=== PATIENT | male | born 1950 | race Caucasian/White ===

== ENCOUNTER → 2016-05-30 | Outpatient (CLI) | payer OTHER | LOC: BHLMT 09:15 | PROVIDERS: ATTEND Internal Medicine Cardiovascular Disease | DX: I48.91 Unspecified atrial fibrillation (principal) | CPT/HCPCS: 93306-PO ==

== ENCOUNTER 2016-06-14 07:00 | Day surgery (SDC) | payer OTHER ==
[2016-06-14] MEDS ORDERED: PROPOFOL 200 MG/20 ML VIAL IVP ONE (07:06)
[2016-06-14] MEDS ORDERED: fentaNYL 100 MCG/2 ML INJ IVP ONE (07:06)
[2016-06-14] MEDS ORDERED: MIDAZOLAM 2 MG/2 ML VIAL IVP ONE (07:06)
[2016-06-14] MEDS ORDERED: NS 500 ML IV ONE (07:06)
--- NOTE | 2016-06-14 07:40 | CPEKG ---
Heart Rate: 85 RR Interval: 706 QRSD Interval: 100 QT Interval: 380 QTC Interval: 452 QRS [place]: 268 T Wave [place]: 70 EKG Severity - ABNORMAL ECG - EKG Impression: ATRIAL FIBRILLATION, V-RATE 77-100 EKG Impression: LEFT ANTERIOR FASCICULAR BLOCK EKG Impression: ATRIAL FIBRILLATION IS NEW IN COMPARISON TO PRIOR Electronically Signed By: Alex Gates 15-Jun-2016 08:47:12
[2016-06-14 08:04] LABS: INR 1.21 (0.83-1.16); PROTIME(PATIENT) 15.3 SEC (12.0-15.0)
[2016-06-14 08:05] LABS: APTT 26.9 SEC (23.0-38.0)
[2016-06-14 08:14] LABS: ALANINE AMINOTRANSFERASE 33 IU/L (21-72); ALBUMIN 3.9 g/dL (3.5-5.0); ALKALINE PHOSPHATASE 49 IU/L (38-126); ANION GAP 8 mEq/L (8-16); ASPARTATE AMINOTRANSFERASE 26 IU/L (17-59); BILIRUBIN,TOTAL 0.9 mg/dL (0.1-1.4); BILIRUBIN-CONJUGATED 0.3 mg/dL (0.0-0.5); BILIRUBIN-UNCONJUGATED 0.6 mg/dL (0.0-1.1); CALCIUM 9.2 mg/dL (8.5-10.4); CARBON DIOXIDE 29 mEq/l (22-31); CHLORIDE 106 mEq/L (97-110); CREATININE 0.8 mg/dL (0.7-1.3); DIGOXIN 1.2 ng/mL (0.8-2.0); GLOMERULAR FILTRATION RATE > 60; GLUCOSE 104 mg/dL (70-100); MAGNESIUM 2.1 mg/dL (1.6-2.3); POTASSIUM 4.6 mEq/L (3.5-5.2); SODIUM 143 mEq/L (134-144); TOTAL PROTEIN 7.2 g/dL (6.3-8.2)
[2016-06-14] MEDS ORDERED: LIDOCAINE 1% 5 ML SDV ONE (09:26)
[2016-06-14] MEDS ORDERED: PROPOFOL 200 MG/20 ML VIAL ONE (09:26)
--- NOTE | 2016-06-14 09:48 | PDTEE1 ---
MARIAH Cardioversion Procedure Procedure: Electrical Cardioversion, Transesophageal Echo Indications: Atrial Fibrillation Consent: Signed and in Chart Anticoagulation: Eliquis Procedural Details: Pads were placed in anterior-posterior position. MARIAH probe was advanced and standard images obtained. There is no evidence of left atrial or left atrial appendage thrombus. Synchronized cardioversion attempt #1: 200J Results: Normal sinus rhythm Conclusions: Successful Cardioversion
--- NOTE | 2016-06-14 10:27 | CPEKG ---
Heart Rate: 50 RR Interval: 1200 P-R Interval: 224 QRSD Interval: 102 QT Interval: 432 QTC Interval: 394 P [place]: -25 QRS [place]: -87 T Wave [place]: 41 EKG Severity - ABNORMAL ECG - EKG Impression: SINUS RHYTHM EKG Impression: FIRST DEGREE AV BLOCK EKG Impression: LEFT ANTERIOR FASCICULAR BLOCK EKG Impression: SINUS RHYTHM HAS REPLACED PREVIOUS ECG WITH ATRIAL FIBRILLATION EKG Impression: PACs NOTED Electronically Signed By: Alex Gates 15-Jun-2016 08:48:12
== END 2016-06-14 12:00 | disposition home or self-care (01) ==
LOC: FCATH 07:00
PROVIDERS: ATTEND Internal Medicine Cardiovascular Disease
DX: I48.0 Paroxysmal atrial fibrillation (principal); I44.30 Unspecified atrioventricular block; I44.4 Left anterior fascicular block
CPT/HCPCS: J2704

== ENCOUNTER → 2016-06-14 | Outpatient (CLI) | payer OTHER | LOC: FIMAGING 06:54 | PROVIDERS: ATTEND Internal Medicine Cardiovascular Disease | DX: R07.81 Pleurodynia (principal) ==

== ENCOUNTER → 2016-06-27 | Outpatient (CLI) | payer OTHER | LOC: BHLMT 09:30 | PROVIDERS: ATTEND Internal Medicine Cardiovascular Disease | DX: I48.0 Paroxysmal atrial fibrillation (principal); I71.2 Thoracic aortic aneurysm, without rupture; I10 Essential (primary) hypertension | CPT/HCPCS: 93005-PO ==

== ENCOUNTER → 2016-07-07 | Outpatient (CLI) | payer OTHER | LOC: BHFA 09:00 | PROVIDERS: ATTEND Internal Medicine Cardiovascular Disease | DX: I48.0 Paroxysmal atrial fibrillation (principal); I71.2 Thoracic aortic aneurysm, without rupture; I10 Essential (primary) hypertension ==

== ENCOUNTER → 2016-11-07 | Outpatient (CLI) | payer OTHER | LOC: BHLMT 14:00 | PROVIDERS: ATTEND Internal Medicine Cardiovascular Disease | DX: I71.2 Thoracic aortic aneurysm, without rupture (principal); I10 Essential (primary) hypertension; I48.0 Paroxysmal atrial fibrillation | CPT/HCPCS: 93005-PO ==

== ENCOUNTER 2016-11-29 07:26 | Inpatient (IN) | payer OTHER ==
[~2016-11-29 07:26] MED LIST: NS IV ONE; POVIDONE-IODINE 20 ML in SODIUM CL IRRIG SOLUTION 500 ML IRR ONE; ROPIVACAINE 0.2% 80 MG, EPINEPHrine 0.2 MG, KETOROLAC TROMETHAMINE 30 MG in BAG 0 ML IU ONE; TRANEXAMIC ACID IV ONE
[2016-11-29] MEDS ORDERED: ceFAZolin 2 GM/DEXTROSE 100 ML IV ONE (07:44)
[2016-11-29] MEDS ORDERED: ACETAMINOPHEN 325 MG TAB PO ONE (07:44)
[2016-11-29] MEDS ORDERED: FAMOTIDINE 20 MG TAB PO ONE (07:44)
[2016-11-29] MEDS ORDERED: DEXAMETHASONE 4 MG/ML VIAL IVP ONE (07:44)
[2016-11-29] MEDS ORDERED: ceFAZolin 1 GM/5 ML SYR ONE (07:51)
[2016-11-29] MEDS ORDERED: LR 1,000 ML IV ONE (08:08)
[2016-11-29] MEDS ORDERED: LIDOCAINE 1% 2 ML INJ ID PRN (08:08)
--- NOTE | 2016-11-29 08:14 | PDANEPAE ---
ANE History of Present Illness osteoarthritis hip ANE Past Medical History - Cardiovascular History Hx Hypertension: Yes Hx Arrhythmias: Yes Hx Chest Pain: No Hx Coronary Artery / Peripheral Vascular Disease: No Hx CHF / Valvular Disease: No Hx Palpitations: No Cardiovascular History Comment: ASCENDING AORTIC ANEURSYM. A-FIB PREV CARDIOVERSION - Pulmonary History Hx COPD: No Hx Asthma/Reactive Airway Disease: No Hx Recent Upper Respiratory Infection: No Hx Oxygen in Use at Home: No Hx Sleep Apnea: No Sleep Apnea Screening Result - Last Documented: Positive Pulmonary History Comment: PNEUMONIA X2 - Neurologic History Hx Cerebrovascular Accident: No Hx Seizures: No Hx Dementia: No - Endocrine History Hx Diabetes: No - Renal History Hx Renal Disorders: Yes Renal History Comment: BPH - Liver History Hx Hepatic Disorders: No - Neurological & Psychiatric Hx Hx Neurological and Psychiatric Disorders: No - Cancer History Hx Cancer: Yes Cancer History Comment: SKIN - Congenital Disorder History Hx Congenital Disorders: No - GI History Hx Gastrointestinal Disorders: No - Other Health History Other Health History: OSTEOARTHRITIS. BEGINNING CATARACTS - Chronic Pain History Chronic Pain: Yes (RT HIP) - Surgical History Prior Surgeries: CARDIOVERSION 06/14/2016. LT ING HERNIA ANE Review of Systems Review of Systems: positive for A Fib and Hepatitis C and COPD with current smoking. Anti- coagulation management an active issue - Exercise capacity METS (RN): 3 METS ANE Patient History - Allergies Allergies/Adverse Reactions: No Known Allergies Allergy (Unverified 02/21/16 08:03) - Home Medications Home Medications: Albuterol [Proventil Inhaler HFA (*)] 1 - 2 puffs IH DAILY PRN 02/21/16 [Last Taken 02/20/16 08:00] Amiodarone HCl [Pacerone (*)] 200 mg PO DAILY 02/21/16 [Last Taken 02/20/16 18: 00] Apixaban [Eliquis] 5 mg PO BID 02/21/16 [Last Taken 02/21/16 05:00] Benazepril HCl [Lotensin] 40 mg PO DAILY 02/21/16 [Last Taken 02/21/16 06:00] Digoxin [Lanoxin 125 mcg (RX)] 125 mcg PO DAILY 02/21/16 [Last Taken 02/21/16 06 :00] Finasteride [Proscar 5 MG (*)] 5 mg PO DAILY 02/21/16 [Last Taken 02/21/16 06:00 ] Herbals/Supplements -Info Only 1 ea PO DAILY 11/20/16 [Last Taken Unknown] Hydrochlorothiazide [HCTZ (*)] 25 mg PO DAILY 11/20/16 [Last Taken Unknown] Multivitamins [Multivitamin (*)] 1 each PO DAILY 11/20/16 [Last Taken Unknown] - Smoking Hx Smoking Status: Light smoker ANE Labs/Vital Signs - Vital Signs Height: 190.5 cm Weight: 72.575 kg ANE Anesthesia Plan Anesthesia Plan: MAC, spinal Regional Anesthesia: single shot NB (will attend to hx of Afib prior anti- coagulation)
--- NOTE | 2016-11-29 08:47 | PDHPUP ---
History & Physical Update H&P update statement: This history and physical update is based on an assessment of the patient which was completed after admission or registration (within 24 hours), but prior to the surgery/procedure. H&P update: H&P reviewed & patient examined, no change in patient's condition since H&P completed
[2016-11-29 09:05] LABS: APTT 25.8 SEC (23.0-38.0); INR 1.04 (0.83-1.16); PROTIME(PATIENT) 13.5 SEC (12.0-15.0)
[2016-11-29] MEDS ORDERED: MIDAZOLAM 2 MG/2 ML VIAL IVP ONE (09:08)
[2016-11-29] MEDS ORDERED: MIDAZOLAM 2 MG/2 ML VIAL ONE ×2 (09:18→09:19)
[2016-11-29] MEDS ORDERED: ALBUTEROL HFA ANES ONLY 200 PUFFS/8.5 GM MDI IH ONE (09:18)
[2016-11-29] MEDS ORDERED: PROPOFOL/EMULSION 500 MG/50 ML BOTTLE IV ONE (09:18)
[2016-11-29] MEDS ORDERED: NALOXONE HCL 0.4 MG/ML INJ IVP PRN (10:51)
[2016-11-29] MEDS ORDERED: HYDROmorphONE/DILAUDID 1 MG/ML SYR IVP PRN (10:51)
[2016-11-29] MEDS ORDERED: ONDANSETRON 4 MG/2 ML VIAL IVP PRN ×2 (10:51→11:22)
--- NOTE | 2016-11-29 10:57 | POSTANESTH ---
Post Anesthetic Evaluation Cardiovascular Status: Similar to Pre-Op Cond Respiratory Status: Similar to Pre-op Cond. Level of Consciousness/Mental Status: Mildly Sleepy, Arousable Pain Control: Adequate, Prn Tx Ordered Nausea/Vomiting Control: Adequate, Prn Tx Ordered Complications Possibly Related to Anesthesia: None Noted
--- NOTE | 2016-11-29 11:10 | POSTOPPROG ---
Post Op Note Date of Operation: 11/29/16 Surgeon: Nino Marquez Button Pusher: Ha Otoole/Letty Smith Anesthesiologist: Dr. Elbert Mars Anesthesia: IV Sedation, Spinal Post-op Diagnosis: Right hip severe degenerative arthritis. Procedure: Right total hip arthroplasty. Inf/Abcess present in the surg proc area at time of surgery?: No EBL: 100-500
[2016-11-29] MEDS ORDERED: PROMETHAZINE HCL 25 MG/ML INJ IVP PRN (11:22)
[2016-11-29] MEDS ORDERED: MAGNESIUM HYDROXIDE 30 ML UDCUP PO PRN (11:22)
[2016-11-29] MEDS ORDERED: CYCLOBENZAPRINE 10 MG TAB PO PRN (11:22)
[2016-11-29] MEDS ORDERED: POLYETHYLENE GLYCOL 3350 17 GM PKT PO PRN (11:22)
[2016-11-29] MEDS ORDERED: diphenhydrAMINE 25 MG CAP PO PRN (11:22)
[2016-11-29] MEDS ORDERED: traMADol 50 MG TAB PO PRN (11:22)
[2016-11-29] MEDS ORDERED: TEMAZEPAM 15 MG CAP PO PRN (11:22)
[2016-11-29] MEDS ORDERED: LACTULOSE 20 GM/30 ML UDCUP PO PRN (11:22)
[2016-11-29] MEDS ORDERED: DIPHENOXYLATE/ATROPINE LOMOTIL 1 TAB PO PRN (11:22)
[2016-11-29] MEDS ORDERED: METOCLOPRAMIDE 10 MG/2 ML VIAL IVP PRN (11:22)
[2016-11-29] MEDS ORDERED: PROMETHAZINE HCL 25 MG SUPPR PR PRN (11:22)
[2016-11-29] MEDS ORDERED: KETOROLAC 30 MG/1 ML SDV IVP PRN (11:22)
[2016-11-29] MEDS ORDERED: BISACODYL 10 MG SUPP PR PRN (11:22)
[2016-11-29] MEDS ORDERED: ALBUTEROL 60 PUFFS/8 GM MDI IH PRN (11:25)
[2016-11-29] MEDS ORDERED: LR 1,000 ML IV SCH (11:30)
[2016-11-29] MEDS ORDERED: ALBUTEROL 200 PUFFS/18 GM MDI IH PRN (11:41)
[2016-11-29] MEDS: ACETAMINOPHEN 325 MG TAB PO SCH ×2 (13:16→18:40)
[2016-11-29] MEDS: TRANEXAMIC ACID 650 MG TAB PO SCH ×2 (13:16→21:36)
--- NOTE | 2016-11-29 13:21 | GOP ---
[f rep st] OPERATIVE REPORT DATE OF OPERATION: 11/29/2016 SURGEON: Nino Marquez MD LAST DIPPER: Ha Otoole CFA, and Letty Smith RN. ANESTHESIA: A combination of Marcaine, spinal, and IV sedation. ANESTHESIOLOGIST: Elbert Mars MD. PREOPERATIVE DIAGNOSIS: Right hip severe degenerative arthritis. POSTOPERATIVE DIAGNOSIS: Right hip severe degenerative arthritis. PROCEDURE PERFORMED: Right total hip arthroplasty, Oxinium femoral head on highly cross-linked poly ethylene cup liner. FINDINGS: ESTIMATED BLOOD LOSS: About 400 mL. I used a Cervantes and [employer]hew R3 hemispherical solid-backed acetabular shell with an outside diameter of 62 mm. The liner was a Cervantes and Nephew R3 flush highly cross-linked liner with an inside diameter of 36 mm. The femoral component was a press-fit Cervantes and Nephew standard offset Synergy stem in a size 15. The femoral head was a Cervantes Nephew Oxinium head with a +4 mm neck length and a 36 mm out side diameter. Ha Otoole and Letty Smith acted as surgical assistants. Their assistance was a medical necess ity for safe completion of the procedure. DESCRIPTION OF PROCEDURE: The patient was given 2 g of IV Ancef preoperatively within 60 minutes of surgery. He also received IV tranexamic acid at a dose of 20 mg/kg. He was placed on the [facility] g room table and given spinal anesthesia with Marcaine by Dr. Mars. He was then placed supine and given IV sedation. A catheter was not used. He wore a DEYSI stocking and SCD on the nonoperat stewart leg. He was rolled to the left lateral decubitus position. The position was secured with the p egboard table attachment. An axillary roll was used, and all pressure points were carefully padded. I was careful to lock his pelvis in a rigid vertical position. His perineum was isolated with lourdes stic adhesive drapes. The right hip and right lower extremity were prepped with ChloraPrep. They w ere draped free using sterile sheets, stockinette, and Ioban plastic drape. The World [employer] Organization time-out was performed to verify the correct surgical side and site, a nd the correct patient identity. The [place] time-out was also performed. I made a 5-inch straight oblique posterolateral hip skin incision. He was very thin and had a thin layer of subcutaneous fat. Subcutaneous tissues were sharply divided, and hemostasis was obtained u sing electrocautery. His fascia luana was identified and split along the axis of its fibers. I then curved posteriorly and proximally split the fascia of gluteus jj and bluntly split the muscle fibers in line with their orientation. The Charnley self-retaining retractor was inserted. His sci atic nerve was located, partially exposed, and protected throughout the procedure. The external rot ators and the posterior hip capsule were divided as separate layers at the base of the femoral neck, tagged, and reflected posteriorly. His posterior capsule was very attenuated. A smooth 8-inch Quang inmann pin was inserted vertically into the ilium, superior to the acetabulum. An 8-inch drill bit was inserted vertically into the greater trochanter and parallel to the first pin. The distance bet ween the 2 was measured for leg length reference. His femoral head was dislocated posteriorly. He had very severe degenerative changes. His femoral head was markedly enlarged, and he had very large peripheral head osteophytes. The femoral neck was osteotomized at the appropriate level and inclin ation. He had multiple small loose bodies in the joint. These were removed. The remnant of his labrum was excised. I prepared the femur first. This allowed me to paper machine tender the am ount of natural femoral neck anteversion. He had about 10 degrees of natural anteversion. The brenton l was opened laterally with a box chisel. I then reamed and broached sequentially up to size 15. I used a size 15 broach as a trial stem. I was careful to lateralize adequately. Appropriate retractors were inserted to expose the acetabulum. In conjunction with the large femora l head, he had a very large acetabulum. The acetabulum was reamed sequentially up to 61 mm. I raj cted a 62 mm Cervantes and Nephew R3 solid-backed hemispherical shell. This was tapped securely into pl juice in the proper degree of inclination and anteversion. I used the remnant of the transverse aceta bular ligament and other acetabular bony landmarks to help me properly orient the cup. Fixation was very tight, and supplemental screw fixation was not necessary. I inserted a screw-in metal dome ho le plug. He had very large posterior-inferior osteophytes, which I removed with an osteotome and ro ngeur. I performed a series of trial reductions to determine length and stability. I concluded that the si ze 15 stem with a +4 mm neck length, a 36 mm head, and a flush liner gave me the proper combination of appropriate length and good anterior and posterior stability. I recognized that I was lengthenin g him by 7 or 8 mm. This gave me better stability. I advised him that when I lengthen him on this side, I will lengthen him a similar amount when I do his opposite hip. His left hip is also very ar thritic. The flush Cervantes and Nephew R3 highly cross-linked polyethylene liner was inserted and tapped securel y into place. The Cervantes and Nephew Synergy stem in a size 15 with standard offset was inserted pres s-fit and was very tight. I did one final trial reduction, and confirmed that the +4 mm neck length with a 36 mm head was the proper combination. The Cervantes and Nephew Oxinium head with a 36 mm outsi de diameter and a +4 mm neck length was tapped securely onto the clean trunnion. The acetabulum was irrigated and cleaned, and the hip was reduced one final time. 40 mL of the joint anesthetic cocktail was injected into the capsule, the deep musculature, and subc utaneous tissues along the skin edges. The joint was thoroughly irrigated one final time with a dil [place] Betadine solution. His sciatic nerve was reinspected and looked unharmed. The external rotator s and the flimsy posterior capsule were closed as a single layer with #2 FiberWire sutures through d rill holes in the greater trochanter. The fascia luana was closed first with a couple of interrupted [id number]-ohaqm #2 FiberWire sutures, followed by a running #2 barbed Ethicon Stratafix PDO suture. Subcutaneous tissues were closed with a running 0 barbed Ethicon Stratafix Monoderm suture. The s kin was closed with a running 3-0 barbed Ethicon Stratafix Monoderm subcuticular suture. The skin e dges were reapproximated and sealed with Dermabond glue. The wound was covered with a strip of Telf a, and everything was held in place with a piece of clear plastic Tegaderm. A long-leg DEYSI stocking and SCD were applied to his right lower extremity. He wore a stockemma and S CD on the opposite leg during the procedure. An abduction pillow was placed between his knees. He was awakened from anesthesia and rolled to the supine position on his [facility]. He was taken to PACU in satisfactory condition. There were no recognized intraoperative complications. /[id number]/MODL
[2016-11-29] MEDS: ceFAZolin 2 GM/DEXTROSE 100 ML IV SCH ×2 (14:26→21:35)
[2016-11-29] MEDS: oxyCODONE IR 5 MG TAB PO PRN ×2 (16:59→21:44)
[2016-11-29] MEDS: SENNOSIDES/DOCUSATE SODIUM TAB PO SCH (21:35)
[2016-11-29] MEDS: FAMOTIDINE 20 MG TAB PO SCH (21:36)
[2016-11-30] MEDS: ACETAMINOPHEN 325 MG TAB PO SCH ×3 (00:52→10:57)
[2016-11-30] MEDS: TRANEXAMIC ACID 650 MG TAB PO SCH (04:27)
[2016-11-30] MEDS: oxyCODONE IR 5 MG TAB PO PRN ×3 (04:27→10:58)
[2016-11-30 05:27] LABS: HEMATOCRIT 35.7 % (40.0-51.0); HEMOGLOBIN 12.2 g/dL (13.7-17.5)
--- NOTE | 2016-11-30 07:15 | SOAPPROG ---
SOAP Progress Note Assessment/Plan: Assessment: Afebrile. Awake and alert. Moderate pain. Needed urinary catheterization 1 time yesterday, but has been voiding spontaneously since then. His dressing is dry. Sciatic nerve intact. Postop films look excellent. H&H were good. Plan: Up with physical therapy today. Discharged later today. 11/30/16 07:15 Objective: Vital Signs Temp Pulse Resp BP Pulse Ox 36.6 C 53 L 16 127/71 H 98 11/30/16 04:23 11/30/16 04:23 11/30/16 04:23 11/30/16 04:23 11/30/16 04:23 Laboratory Results 11/30/16 05:12 11/29/16 11/30/16 12/01/16 05:59 05:59 05:59 Intake Total 3255 Output Total 1200 Balance 2055 PT 13.5 SEC (12.0-15.0) 11/29/16 08:40 INR 1.04 (0.83-1.16) 11/29/16 08:40 ICD10 Worksheet Patient Problems: Problems Problem Status Onset Osteoarthritis of right hip Acute
[2016-11-30] MEDS: SENNOSIDES/DOCUSATE SODIUM TAB PO SCH (07:50)
[2016-11-30] MEDS: FAMOTIDINE 20 MG TAB PO SCH (07:51)
[2016-11-30] MEDS: DIGOXIN 125 MCG TAB PO SCH ×2 (07:51→07:52)
[2016-11-30 08:18] VITALS: BP 103/64; PULSE 66; RESP 12; TEMP 96.1; O2SAT 95
[2016-11-30] MEDS ORDERED: HYDROCHLOROTHIAZIDE 25 MG TAB PO SCH (09:00)
[2016-11-30] MEDS ORDERED: FINASTERIDE 5 MG TAB PO SCH (09:00)
[2016-11-30] MEDS ORDERED: BENAZEPRIL HCL 20 MG TAB PO SCH (09:00)
[2016-11-30] MEDS ORDERED: FERROUS SULFATE 140 MG TAB.ER PO SCH (09:00)
[2016-11-30] MEDS ORDERED: APIXABAN 5 MG TAB PO SCH (09:00)
[2016-11-30] MEDS ORDERED: BENAZEPRIL HCL 40 MG PO SCH (09:00)
[2016-11-30] MEDS ORDERED: AMIODARONE HCL 200 MG TAB PO SCH (09:00)
[2016-11-30] MEDS ORDERED: MULTIVITAMINS 1 EACH TAB PO SCH (09:00)
[2016-11-30] MEDS ORDERED: ASPIRIN 325 MG TAB PO SCH (09:00)
--- NOTE | 2016-11-30 13:51 | CPEKG ---
Heart Rate: 59 RR Interval: 1017 QRSD Interval: 98 QT Interval: 408 QTC Interval: 405 QRS [place]: -89 T Wave [place]: 43 EKG Severity - ABNORMAL ECG - EKG Impression: NSR EKG Impression: LAD, CONSIDER LAFB OR INFERIOR INFARCT Electronically Signed By: Dion Acuña 30-Nov-2016 14:16:42
--- NOTE | 2016-11-30 14:03 | GDS ---
[f rep st] DISCHARGE SUMMARY ADMISSION DIAGNOSIS: Right hip severe degenerative arthritis. DISCHARGE DIAGNOSES: Right hip severe degenerative arthritis. OPERATIONS PERFORMED: 11/29/2016, a right total hip arthroplasty. POSTOPERATIVE COMPLICATIONS: None. CONDITION ON DISCHARGE: Improved. DESCRIPTION OF HOSPITAL COURSE: The patient was admitted to the hospital the morning of surgery. His admission CBC was normal except for a platelet count of 135,000. Electrolytes, BUN and creatinine were normal. The same day, under a combination of Marcaine, spinal anesthesia and IV sedation, he underwent a right total hip arthroplasty. Postoperatively, he was treated with multimodal DVT prophylaxis, including aspirin and early mobilization. He was also restarted on his Eliquis for atrial fib. He was seen by Physical Therapy and made good progress with ambulation. He required straight urinary catheterization 1 time, but was able to void spontaneously after that. By the time of discharge, he was afebrile, was independent walking, and his dressing was clean and dry. DISPOSITION: The patient is discharged to his home. He will go to outpatient physical therapy in [place]. Continue aspirin 325 mg p.o. daily for 21 days. He may progress to full weightbearing on the right as tolerated. Use an abduction pillow in bed for 3 weeks. Use DEYSI stockings for 1 week. I will see him back in the office on December 21, 2016. Continue his normal pre op dose of Eliquis. If any problems, he is to call me at the office. /[id number]/MODL MTDD
== END 2016-11-30 11:25 | disposition home or self-care (01) | DRG 470 ==
LOC: F3N 07:26
PROVIDERS: ADMIT Orthopaedic Surgery; ATTEND Orthopaedic Surgery
PROC: 0SR904Z Replacement of Right Hip Joint with Ceramic on Polyethylene Synthetic Substitute, Open Approach (ICD-10-PCS; principal; 2016-11-29 09:30)
DX: M16.11 Unilateral primary osteoarthritis, right hip (principal); I48.91 Unspecified atrial fibrillation; I10 Essential (primary) hypertension; N40.0 Benign prostatic hyperplasia without lower urinary tract symptoms; Z79.01 Long term (current) use of anticoagulants
CPT/HCPCS: 97116-GP; 97161-GP; 97165-GO; 97530-GP; G8978-GP-CJ; G8979-GP-CI; G8980-GP-CI; G8987-GO-CI; G8988-GO-CI; G8989-GO-CI; J0171; J0690; J1100; J1885; J2250; J2704; J2795

== ENCOUNTER → 2016-12-14 | Outpatient (CLI) | payer OTHER | LOC: BHFA 09:30 | PROVIDERS: ATTEND Internal Medicine Cardiovascular Disease | DX: Z79.899 Other long term (current) drug therapy (principal) ==

== ENCOUNTER 2017-02-21 05:49 | Inpatient (IN) | payer OTHER ==
--- NOTE | 2017-02-08 09:31 | GHP ---
[f rep st] PREOP HISTORY AND PHYSICAL DATE OF ADMISSION: He will be an a.m. admission for surgery on 02/21/2017. PROBLEM: Left hip arthritis. HISTORY OF PRESENT ILLNESS: The patient is a 66-year-old man admitted for a left total hip arthroplasty. He has a long history of severe bilateral hip pain. He is having daily pain and night pain in his left hip. His activities are very limited because of the pain. I did his right total hip arthroplasty on November 29, 2016, and he has had a very good result. He is admitted now for the same procedure on the left hip. PAST MEDICAL HISTORY: He has a history of hepatitis C and has had Harvoni treatment. He also has atrial fibrillation; this is controlled with medication. He is also treated for hypertension. No history of DVT, sleep apnea, or bleeding problems. CURRENT MEDICATIONS: Amiodarone 200 mg per day, benazepril 20 mg per day, digoxin 0.125 mg per day, Eliquis 5 mg per day, finasteride 5 mg per day, hydrochlorothiazide 25 mg per day. He occasionally uses an inhaler for shortness of breath. ALLERGIES: Drugs: None. Metal: None. Latex: None. SOCIAL HISTORY: The patient lives with a female partner. He smokes 3 or 4 cigarettes per day. He does not drink alcohol. FAMILY HISTORY: Negative. PHYSICAL EXAMINATION: VITAL SIGNS: Height 6 feet 2 inches, weight 160 pounds, BMI 20.5. EYES: The conjunctivae and sclerae are clear. Pupils are round and reactive. MOUTH: Fair oral hygiene. CHEST: Clear. HEART: Regular rhythm, no murmurs. EXTREMITIES: Pertinent findings limited to his left hip. He has full hip extension and 80 degrees of flexion, internal rotation 0 degrees, external rotation 0 degrees, and abduction 20 degrees. IMAGING: His films show very severe degenerative arthritis of the left hip. He is bone on bone. Extensive osteophyte formation is present. He has excellent position of the components of his right total hip arthroplasty. He is approximately 10 mm long on the right. IMPRESSION ON ADMISSION: 1. Left hip advanced degenerative arthritis; he is prepared for a left total hip arthroplasty. 2. Two months status post successful right total hip arthroplasty. 3. History of hepatitis C; he has been treated with Harvoni. 4. Atrial fibrillation. 5. Hypertension. PLAN: He will undergo a left total hip arthroplasty. The surgery has been described to him, including the risks, complications, expectations, and recovery time. I have discussed with him the risk of dislocation, leg length inequality, infection, and sciatic nerve injury. I intend to lengthen him on the left side to equalize his leg lengths. I have advised him that with bilateral procedures, there can be mild tlgu-ps-lysd differences during the recovery and even in the final result. All his questions have been answered, and he consents to surgery. I will stop his Eliquis 3 days prior to surgery and then restart it postoperatively. That is what I did with his 1st total hip replacement. /[id number]/MODL MTDD
[2017-02-21] MEDS ORDERED: POVIDONE-IODINE 20 ML in SODIUM CL IRRIG SOLUTION 500 ML IRR ONE (06:00)
[2017-02-21] MEDS ORDERED: ROPIVACAINE 0.2% 80 MG, EPINEPHrine 0.2 MG, KETOROLAC TROMETHAMINE 30 MG in BAG 0 ML IU ONE (06:00)
[2017-02-21] MEDS ORDERED: TRANEXAMIC ACID IV ONE (06:00)
[2017-02-21] MEDS ORDERED: NS IV ONE (06:00)
[2017-02-21] MEDS ORDERED: FAMOTIDINE 20 MG TAB PO ONE (06:04)
[2017-02-21] MEDS ORDERED: DEXAMETHASONE 4 MG/ML VIAL IVP ONE (06:04)
[2017-02-21] MEDS ORDERED: ceFAZolin 2 GM/SWFI 2 GM/20 ML SYR IVP ONE ×2 (06:04→06:15)
[2017-02-21] MEDS ORDERED: ACETAMINOPHEN 325 MG TAB PO ONE (06:04)
[2017-02-21] MEDS ORDERED: ceFAZolin 1 GM/5 ML SYR ONE (06:16)
[2017-02-21] MEDS ORDERED: LR 1,000 ML IV ONE (06:19)
[2017-02-21] MEDS ORDERED: LIDOCAINE 1% 2 ML INJ ID PRN (06:19)
[2017-02-21] MEDS ORDERED: MIDAZOLAM 2 MG/2 ML VIAL IVP ONE (07:05)
--- NOTE | 2017-02-21 07:07 | PDANEPAE ---
ANE Past Medical History - Cardiovascular History Hx Hypertension: Yes Hx Arrhythmias: Yes Hx Chest Pain: No Hx Coronary Artery / Peripheral Vascular Disease: No Hx CHF / Valvular Disease: No Hx Palpitations: No Cardiovascular History Comment: ASCENDING AORTIC ANEURSYM. A-FIB PREV CARDIOVERSION - Pulmonary History Hx COPD: No Hx Asthma/Reactive Airway Disease: No Hx Recent Upper Respiratory Infection: No Hx Oxygen in Use at Home: No Hx Sleep Apnea: No Sleep Apnea Screening Result - Last Documented: Positive Pulmonary History Comment: PNEUMONIA X2 - Neurologic History Hx Cerebrovascular Accident: No Hx Seizures: No Hx Dementia: No - Endocrine History Hx Diabetes: No - Renal History Hx Renal Disorders: Yes Renal History Comment: BPH - Liver History Hx Hepatic Disorders: No - Neurological & Psychiatric Hx Hx Neurological and Psychiatric Disorders: No - Cancer History Hx Cancer: Yes Cancer History Comment: SKIN - Congenital Disorder History Hx Congenital Disorders: No - GI History Hx Gastrointestinal Disorders: No - Other Health History Other Health History: OSTEOARTHRITIS. BEGINNING CATARACTS - Chronic Pain History Chronic Pain: Yes (LT HIP) - Surgical History Prior Surgeries: RT TOTAL HIP 11/29/16. CARDIOVERSION 06/14/2016. LT ING HERNIA ANE Review of Systems Review of systems is: negative (hepatitis treated) Review of Systems: - Exercise capacity METS (RN): 3 METS ANE Patient History - Allergies Allergies/Adverse Reactions: No Known Allergies Allergy (Unverified 02/21/16 08:03) - Home Medications Home Medications: Albuterol [Proventil Inhaler HFA (*)] 2 puffs IH DAILY PRN 02/21/16 [Last Taken 02/18/17] Amiodarone HCl [Pacerone (*)] 200 mg PO DAILY18 02/21/16 [Last Taken 02/21/17 05 :00] Apixaban [Eliquis] 5 mg PO BID 02/21/16 [Last Taken 02/18/17] Benazepril HCl [Lotensin] 40 mg PO DAILY 02/21/16 [Last Taken 02/20/17 18:00] Digoxin [Lanoxin 125 mcg (RX)] 125 mcg PO DAILY 02/21/16 [Last Taken 02/20/17 18 :00] Finasteride [Proscar 5 MG (*)] 5 mg PO DAILY 02/21/16 [Last Taken 02/20/17 18:00 ] Herbals/Supplements -Info Only 1 ea PO DAILY 11/20/16 [Last Taken 02/14/17] Hydrochlorothiazide [HCTZ (*)] 25 mg PO DAILY 11/20/16 [Last Taken 02/20/17 18: 00] Multivitamins [Multivitamin (*)] 1 each PO DAILY 11/20/16 [Last Taken 02/20/17] - NPO status NPO Since - Liquids (Date): 02/20/17 NPO Since - Liquids (Time): 22:00 NPO Since - Solids (Date): 02/20/17 NPO Since - Solids (Time): 19:00 - Smoking Hx Smoking Status: Light smoker ANE Labs/Vital Signs - Vital Signs Blood Pressure: 127/88 Heart Rate: 64 Respiratory Rate: 16 O2 Sat (%): 97 Height: 190.5 cm Weight: 72.121 kg ANE Physical Exam - Airway Mallampati Score: Class 3 Mouth exam: normal dental/mouth exam - Pulmonary Pulmonary: no respiratory distress, expiratory wheeze - Cardiovascular Cardiovascular: regular rate and rhythym - ASA Status ASA Status: III (hx a fib)
[2017-02-21] MEDS ORDERED: fentaNYL 100 MCG/2 ML INJ ONE (07:14)
[2017-02-21] MEDS ORDERED: MIDAZOLAM 2 MG/2 ML VIAL ONE (07:15)
[2017-02-21] MEDS ORDERED: PROPOFOL/EMULSION 500 MG/50 ML BOTTLE IV ONE (07:15)
[2017-02-21] MEDS ORDERED: DIGOXIN 500 MCG/2 ML AMP ONE (08:01)
[2017-02-21] MEDS ORDERED: ONDANSETRON 4 MG/2 ML VIAL IVP PRN ×2 (08:40→09:19)
[2017-02-21] MEDS ORDERED: ALBUTEROL 3 ML DEYVIAL IH PRN (08:40)
[2017-02-21] MEDS ORDERED: NALOXONE HCL 0.4 MG/ML INJ IVP PRN (08:40)
[2017-02-21] MEDS ORDERED: PROPOFOL 200 MG/20 ML VIAL ONE (09:03)
[2017-02-21] MEDS ORDERED: RANITIDINE 50 MG/2 ML VIAL ONE (09:08)
[2017-02-21] MEDS ORDERED: DEXAMETHASONE 4 MG/ML VIAL ONE (09:08)
[2017-02-21] MEDS ORDERED: ONDANSETRON 4 MG/2 ML VIAL ONE (09:08)
--- NOTE | 2017-02-21 09:14 | POSTOPPROG ---
Post Op Note Date of Operation: 02/21/17 Surgeon: Nino Marquez Aquatics Assistant Department Head: Fidencio Rodríguez/Ha Otoole Anesthesiologist: Elbert Mars Anesthesia: IV Sedation, Spinal Post-op Diagnosis: Left hip severe degenerative arthritis. Procedure: Left total hip arthroplasty. Inf/Abcess present in the surg proc area at time of surgery?: No EBL: 100-500
[2017-02-21] MEDS ORDERED: ALBUTEROL 60 PUFFS/8 GM MDI IH PRN (09:18)
--- NOTE | 2017-02-21 09:18 | POSTANESTH ---
Post Anesthetic Evaluation Cardiovascular Status: Normal, Stable Respiratory Status: Normal, Stable Level of Consciousness/Mental Status: Can Participate in Eval Pain Control: Adequate, Prn Tx Ordered Nausea/Vomiting Control: Adequate, Prn Tx Ordered Complications Possibly Related to Anesthesia: None Noted
[2017-02-21] MEDS ORDERED: traMADol 50 MG TAB PO PRN (09:19)
[2017-02-21] MEDS ORDERED: NS 500 ML IV PRN (09:19)
[2017-02-21] MEDS ORDERED: KETOROLAC 30 MG/1 ML SDV IVP PRN (09:19)
[2017-02-21] MEDS ORDERED: ONDANSETRON DISINTEGRATING 4 MG TAB PO PRN (09:19)
[2017-02-21] MEDS ORDERED: diphenhydrAMINE 25 MG CAP PO PRN (09:19)
[2017-02-21] MEDS ORDERED: PROMETHAZINE HCL 25 MG/ML INJ IVP PRN (09:19)
[2017-02-21] MEDS ORDERED: POLYETHYLENE GLYCOL 3350 17 GM PKT PO PRN (09:19)
[2017-02-21] MEDS ORDERED: TEMAZEPAM 15 MG CAP PO PRN (09:19)
[2017-02-21] MEDS ORDERED: DIPHENOXYLATE/ATROPINE LOMOTIL 1 TAB PO PRN (09:19)
[2017-02-21] MEDS ORDERED: LACTULOSE 20 GM/30 ML UDCUP PO PRN (09:19)
[2017-02-21] MEDS ORDERED: PROMETHAZINE HCL 25 MG SUPPR PR PRN (09:19)
[2017-02-21] MEDS ORDERED: BISACODYL 10 MG SUPP PR PRN (09:19)
[2017-02-21] MEDS ORDERED: CYCLOBENZAPRINE 10 MG TAB PO PRN (09:19)
[2017-02-21] MEDS ORDERED: METOCLOPRAMIDE 10 MG/2 ML VIAL IVP PRN (09:19)
[2017-02-21] MEDS ORDERED: MAGNESIUM HYDROXIDE 30 ML UDCUP PO PRN (09:19)
[2017-02-21] MEDS ORDERED: LR 1,000 ML IV SCH (09:30)
--- NOTE | 2017-02-21 09:53 | GOP ---
[f rep st] OPERATIVE REPORT DATE OF OPERATION: 02/21/2017 SURGEON: Nino Marquez MD DURALUMIN METALWORKER: Fidencio Rodríguez and Ha Otoole. ANESTHESIA: A combination of Marcaine, spinal, and IV sedation, and adductor canal block. ANESTHESIOLOGIST: Elbert Mars MD. PREOPERATIVE DIAGNOSIS: Left hip severe degenerative arthritis. POSTOPERATIVE DIAGNOSIS: Left hip severe degenerative arthritis. PROCEDURE PERFORMED: Left total hip arthroplasty, Oxinium femoral head on highly cross-linked polyet hylene cup liner. FINDINGS: ESTIMATED BLOOD LOSS: About 400 mL. DESCRIPTION OF PROCEDURE: The patient was given 2 g of IV Ancef preoperatively within 60 minutes of surgery. He also received IV tranexamic acid at a dose of 20 mg/kg. He was placed on the operating room table and given spinal anesthesia with Marcaine by Dr. Mars. He was then placed supine and gi demetrio IV sedation. A catheter was not used. He wore a DEYSI stocking and SCD on the nonoperative leg. He was rolled to the right lateral decubitus position. The position was secured with the [employer] emily table attachment. An axillary roll was used, and all pressure points were carefully padded. I w as careful to lock his pelvis in a rigid vertical position. His perineum was isolated with plastic a dhesive drapes. The left hip and left lower extremity were prepped with ChloraPrep. They were drape d free using sterile sheets, stockinette, and Ioban plastic drapes. The [employer] time-out was performed to verify the correct surgical side and site and the correct patient identity. The [facility] time-out was also performed. I made a 5-inch straight oblique posterolateral hip skin incision. Subcutaneous tissues were sharply divided, and hemostasis was obtained using electrocautery. He was thin and had a very thin layer of subcutaneous fat. The fascia luana was identified and split along the axis of its fibers. I then cu rved posteriorly and proximally, and split the fascia of gluteus jj and bluntly split the muscle fibers in line with their orientation. The Charnley self-retaining retractor was inserted. His sci atic nerve was located, partially exposed, and protected throughout the procedure. The external rota tors and the posterior hip capsule were divided as separate layers at the base of the femoral neck, t agged, and reflected posteriorly. A smooth 8-inch Steinmann pin was inserted vertically into the narinder um, superior to the acetabulum. An 8-inch drill bit was inserted vertically into the greater trochan ter and parallel to the first pin. The distance between the 2 was measured for leg length reference. His femoral head was dislocated posteriorly. He had very severe degenerative changes on the femora l head. It was greatly enlarged and flattened. His femoral neck was osteotomized at the appropriate level and inclination. I was careful to preserve all the posterior capsule and most of the anterior capsule. The remnant of his badly damaged labrum was excised. I prepared the femur first. This allowed me to municipal court judge the christine unt of natural femoral neck anteversion. This, in turn, allowed me to later determine the correct am ount of cup of anteversion. He had approximately 10 degrees of femoral neck anteversion. The canal was opened laterally with a box chisel. I reamed and broached sequentially up to size 15. I used a size 15 broach as a trial stem. I was careful to lateralize adequately. Appropriate retractors were inserted to expose the acetabulum. The acetabulum was reamed sequentiall y up to a size 55. His acetabulum had been significantly enlarged by the large arthritic femoral hea d. I selected a 64 mm [employer]antes [employer] R3 solid-backed hemispherical shell. This was tapped securel y into place in the proper degree of inclination and anteversion. I used the transverse acetabular l igament remnant and other acetabular bony landmarks to help me properly orient the cup. A screw-in m etal dome hole plug was used. The fixation was very tight and supplemental screws were not necessary . I performed a series of trial reductions to determine length and stability. I concluded that the siz e 15 stem with standard offset and a +4 mm neck with a 36 mm head and a flush or 0-degree trial liner gave me the proper combination of appropriate lengthening and good anterior and posterior stability. He was short preoperatively, and I was intentionally lengthening hip. He had some large posterior and posterior inferior osteophytes which I removed with an osteotome and rongeur. The 0 degree C[employer] R3 highly cross-linked polyethylene liner was inserted and tapped secur pasquale into place. I selected a C[employer] Synergy stem in a size 15 with standard offset. This was inserted to press-fit and was very tight. I did 1 final trial reduction and confirmed that the + 4 mm neck length with a 36 mm head was the proper combination. The C[employer]hew Oxinium head wit h an outside diameter of 36 mm and a neck length of +4 mm was tapped securely onto the clean trunnion . The acetabulum was irrigated and cleaned, and the hip was reduced 1 final time. He had excellent anterior and posterior stability and appropriate length. 40 mL of the joint anesthetic cocktail were injected into the capsule, the deep musculature, and the subcutaneous tissues around the skin edges. The joint was thoroughly irrigated 1 final time with a d ilute Betadine solution. His sciatic nerve was reinspected and looked unharmed. The external rotators and the posterior hip capsule were repaired in separate layers with #2 FiberWir e sutures through drill holes in the greater trochanter. This provided a strong posterior capsular a nd external rotator repair. The fascia luana was closed first with several interrupted [id number] t #2 FiberWire sutures followed by a running #2 barbed Ethicon Stratafix PDO suture. The subcutaneou s tissues were closed with a running 0 barbed Ethicon Stratafix Monoderm suture. The skin was closed with a running 3-0 barbed Ethicon Stratafix Monoderm subcuticular suture. The skin edges were reapp roximated and sealed with Dermabond glue. The wound was covered with a large piece of sterile Mepile x surgical dressing. A long-leg DEYSI stocking and SCD were applied to his left lower extremity. An abduction pillow was pl aced at his knees. He was awakened from anesthesia and rolled to the supine position on his [facility] He was taken to PACU in satisfactory condition. There were no recognized intraoperative co mplications. COUNTS: The sponge and needle count were correct on 2 occasions. IMPLANTS: I used a [employer] R3 hemispherical solid-backed acetabular shell with an outside d iameter of 64 mm. The liner was a [employer] R3 flush highly cross-linked liner with an inside diameter of 36 mm. The femoral component was a standard offset C[employer]antes [employer]hew Synergy stem in siz e 15 and press-fit. The femoral head was a C[employer]hew Oxinium head with a +4 mm neck length an d a 36 mm outside diameter. Fidencio Rodríguez and Ha Otoole acted as surgical assistants. Their assistance was a medical necess ity for safe completion of the procedure. /[id number]/MODL
[2017-02-21] MEDS ORDERED: ALBUTEROL 200 PUFFS/18 GM MDI IH PRN (11:03)
[2017-02-21] MEDS: ACETAMINOPHEN 325 MG TAB PO SCH ×2 (12:14→18:10)
[2017-02-21] MEDS: oxyCODONE IR 5 MG TAB PO PRN ×4 (14:45→21:14)
[2017-02-21] MEDS: ceFAZolin 2 GM/DEXTROSE 100 ML IV SCH ×2 (14:49→21:23)
[2017-02-21] MEDS: SENNOSIDES/DOCUSATE SODIUM TAB PO SCH (21:24)
[2017-02-21] MEDS: FAMOTIDINE 20 MG TAB PO SCH (21:24)
[2017-02-22] MEDS: ACETAMINOPHEN 325 MG TAB PO SCH ×2 (00:10→05:17)
[2017-02-22] MEDS: oxyCODONE IR 5 MG TAB PO PRN ×2 (05:21→10:56)
--- NOTE | 2017-02-22 07:14 | SOAPPROG ---
SOAP Progress Note Assessment/Plan: Assessment: Afebrile. Awake and alert. Moderate pain. His dressing is dry. Sciatic nerve intact. Postop films look excellent. Hemoglobin and hematocrit today are adequate. Plan: Continue physical therapy today for ambulation and stairs. Discharge later today. 02/22/17 07:13 Objective: Vital Signs Temp Pulse Resp BP Pulse Ox 36.9 C 54 L 18 120/62 97 02/22/17 04:00 02/22/17 04:00 02/22/17 04:00 02/22/17 04:00 02/22/17 04:00 Laboratory Results 02/22/17 04:30 02/22/17 04:30 02/21/17 02/22/17 02/23/17 05:59 05:59 05:59 Intake Total 3930 Output Total 2200 Balance 1730 ICD10 Worksheet Patient Problems: Problems Problem Status Onset Osteoarthritis of left hip Acute Osteoarthritis of right hip Acute
[2017-02-22 07:25] VITALS: BP 121/69; PULSE 56; RESP 16; TEMP 98.7; O2SAT 95
--- NOTE | 2017-02-22 08:18 | GDS ---
[f rep st] DISCHARGE SUMMARY ADMISSION DIAGNOSIS: Left hip arthritis. DISCHARGE DIAGNOSIS: Left hip arthritis. OPERATION PERFORMED: February 21, 2017, a left total hip arthroplasty. POSTOPERATIVE COMPLICATIONS: None. CONDITION ON DISCHARGE: Improved. DESCRIPTION OF HOSPITAL COURSE: The patient was admitted to the hospital on the morning of surgery. His admission CBC and electrolytes were normal. BUN and creatinine 30 and 1.1. The same day, under a combination of Marcaine, spinal, and IV sedation, he underwent a left total hip arthroplasty. Pos toperatively for DVT prophylaxis he was restarted on his Eliquis. He was also treated with early mob ilization. On the first postoperative day, his hemoglobin and hematocrit were 11.1 and 32.2. BUN an d creatinine were 20 and 1.1. He was seen by Physical Therapy and made good progress with ambulation and stairs. By the time of discharge, he was afebrile, his wound was clean and dry, and he was inde pendent walking. DISPOSITION: The patient was discharged to his home. He will go to outpatient physical therapy. Us e an abduction pillow in bed for 3 weeks. He may progress to full weightbearing on the left as marisa ated. Use DEYSI stockings for 1 week. Continue his Eliquis daily. He has prescriptions for oxycodone and tramadol for pain control. I will see him back in the office on March 12, 2017. If there ar e any problems, he is to call me at the office. /[id number]/MODL
[2017-02-22] MEDS ORDERED: BENAZEPRIL HCL 40 MG PO SCH (09:00)
[2017-02-22] MEDS ORDERED: DIGOXIN 125 MCG TAB PO SCH (09:00)
[2017-02-22] MEDS ORDERED: FINASTERIDE 5 MG TAB PO SCH (09:00)
[2017-02-22] MEDS ORDERED: BENAZEPRIL HCL 20 MG TAB PO SCH (09:00)
[2017-02-22] MEDS ORDERED: HYDROCHLOROTHIAZIDE 25 MG TAB PO SCH (09:00)
[2017-02-22] MEDS ORDERED: AMIODARONE HCL 200 MG TAB PO SCH (09:00)
[2017-02-22] MEDS: FAMOTIDINE 20 MG TAB PO SCH (09:00)
[2017-02-22] MEDS: SENNOSIDES/DOCUSATE SODIUM TAB PO SCH (09:00)
[2017-02-22] MEDS ORDERED: APIXABAN 5 MG TAB PO SCH (09:00)
[2017-02-22] MEDS ORDERED: FERROUS SULFATE 140 MG TAB.ER PO SCH (09:00)
--- NOTE | 2017-02-22 14:19 | ASDISCHSUM ---
Discharge Information Plan Status:Home with No Needs Medically Cleared to Leave: Discharge Date:02/22/2017 12:08 PM CM D/C Disposition:Home, Routine, Self-Care ADT D/C Disposition:Home, Routine, Self-Care Projected Discharge Date:02/22/2017 12:08 PM Transportation at D/C:Family Discharge Delay Reason: Follow-Up Date:02/22/2017 12:08 PM Discharge Slot: Final Diagnosis: Placement Information Patient Contact Information Contact Name:CYNTHIA Relationship:Life Partner Address:[address] City:[place] Alternate Phone: State/Zip Code:[place] [address] Email: Financial Information Financial Class:MC Primary Plan Desc:MEDICARE INPATIENT Primary Plan Number:[id number] Secondary Plan Desc: Secondary Plan Number: Assessment Information Intervention Information
--- NOTE | 2017-02-22 14:19 | ASDISCHSUM ---
Discharge Information Plan Status:Home with No Needs Medically Cleared to Leave: Discharge Date:02/22/2017 12:08 PM CM D/C Disposition:Home, Routine, Self-Care ADT D/C Disposition:Home, Routine, Self-Care Projected Discharge Date:02/22/2017 12:08 PM Transportation at D/C:Family Discharge Delay Reason: Follow-Up Date:02/22/2017 12:08 PM Discharge Slot: Final Diagnosis: Placement Information Patient Contact Information Contact Name:CYNTHIA Relationship:Life Partner Address:[address] City:[place] Alternate Phone: State/Zip Code:[place] [address] Email: Financial Information Financial Class:MC Primary Plan Desc:MEDICARE INPATIENT Primary Plan Number:[id number] Secondary Plan Desc: Secondary Plan Number: Assessment Information Intervention Information
--- NOTE | 2017-02-22 14:19 | ASDISCHSUM ---
Discharge Information Plan Status:Home with No Needs Medically Cleared to Leave: Discharge Date:02/22/2017 12:08 PM CM D/C Disposition:Home, Routine, Self-Care ADT D/C Disposition:Home, Routine, Self-Care Projected Discharge Date:02/22/2017 12:08 PM Transportation at D/C:Family Discharge Delay Reason: Follow-Up Date:02/22/2017 12:08 PM Discharge Slot: Final Diagnosis: Placement Information Patient Contact Information Contact Name:CYNTHIA Relationship:Life Partner Address:[address] City:[place] Alternate Phone: State/Zip Code:[place] [address] Email: Financial Information Financial Class:MC Primary Plan Desc:MEDICARE INPATIENT Primary Plan Number:[id number] Secondary Plan Desc: Secondary Plan Number: Assessment Information Intervention Information
== END 2017-02-22 12:08 | disposition home or self-care (01) | DRG 470 ==
LOC: F3N 05:49
PROVIDERS: ADMIT Orthopaedic Surgery; ATTEND Orthopaedic Surgery
PROC: 0SRB0JZ Replacement of Left Hip Joint with Synthetic Substitute, Open Approach (ICD-10-PCS; principal; 2017-02-21 07:15)
DX: M16.12 Unilateral primary osteoarthritis, left hip (principal); I48.91 Unspecified atrial fibrillation; I10 Essential (primary) hypertension; Z79.01 Long term (current) use of anticoagulants; Z72.0 Tobacco use
CPT/HCPCS: 97116-GP; 97161-GP; 97530-GP; G8978-GP-CI; G8978-GP-CJ; G8979-GP-CI; G8980-GP-CI; J0171; J0690; J1100; J1160; J1885; J2250; J2405; J2704; J2780; J2795; J3010

== ENCOUNTER → 2017-05-07 | Outpatient (CLI) | payer OTHER | LOC: BHLMT 09:00 | PROVIDERS: ATTEND Internal Medicine Cardiovascular Disease | DX: I71.2 Thoracic aortic aneurysm, without rupture (principal); I48.91 Unspecified atrial fibrillation; I10 Essential (primary) hypertension; I48.0 Paroxysmal atrial fibrillation; Z79.899 Other long term (current) drug therapy | CPT/HCPCS: 93005-PO ==

== ENCOUNTER → 2017-07-06 | Outpatient (CLI) | payer OTHER | LOC: FIMAGING 09:37 | PROVIDERS: ATTEND Internal Medicine Cardiovascular Disease | DX: I48.91 Unspecified atrial fibrillation (principal); Z79.899 Other long term (current) drug therapy ==

== ENCOUNTER → 2017-09-12 | Outpatient (CLI) | payer OTHER | LOC: BHLMT 09:30 | PROVIDERS: ATTEND Internal Medicine Cardiovascular Disease | DX: I48.91 Unspecified atrial fibrillation (principal) | CPT/HCPCS: 93005-PO ==

== ENCOUNTER → 2017-10-16 | Outpatient (CLI) | payer OTHER | LOC: BHLMT 08:30 | PROVIDERS: ATTEND Internal Medicine Cardiovascular Disease | DX: I48.91 Unspecified atrial fibrillation (principal); I71.9 Aortic aneurysm of unspecified site, without rupture | CPT/HCPCS: 93306-PO ==

== ENCOUNTER → 2017-10-25 | Outpatient (CLI) | payer OTHER | LOC: BHLMT 09:15 | PROVIDERS: ATTEND Internal Medicine Cardiovascular Disease | DX: I71.2 Thoracic aortic aneurysm, without rupture (principal); I48.0 Paroxysmal atrial fibrillation; I10 Essential (primary) hypertension | CPT/HCPCS: 93005-PO ==